=== PATIENT | female | born 1995 | race Caucasian/White ===

== ENCOUNTER 2018-01-15 12:41 | Outpatient (CLI) | payer OTHER | END 2018-01-15 12:52 | disposition home or self-care (01) | LOC: MAMO-SONO 12:41 | DX: E66.8 Other obesity (principal); Z14.02 Symptomatic hemophilia A carrier; D50.9 Iron deficiency anemia, unspecified; R53.1 Weakness; E55.9 Vitamin D deficiency, unspecified; R94.5 Abnormal results of liver function studies; E03.8 Other specified hypothyroidism; Z12.39 Encounter for other screening for malignant neoplasm of breast ==